=== PATIENT | male | born 1960 | race Caucasian/White ===

== ENCOUNTER 2024-07-23 10:04 | Day surgery (SDC) | payer MEDICARE, SELFPAY ==
[2024-07-20 07:11] VITALS: BMI 26.3
[2024-07-23 10:30] LABS: Hematocrit 40.7 % (40-54); Hemoglobin 13.2 g/dL (13.0-16.5); Mean Corp Hgb Conc 32.4 g/dL (32-36); Mean Corpuscular Hgb 30.2 pg (27.0-32.0); Mean Corpuscular Volume 93.1 fL (80-94); Mean Platelet Vol. 10.6 fl (6.2-12.0); Platelet Count 188 K/mm3 (150-450); RBC Distribution Width CV 15.7 % (11.6-14.6); Red Blood Count 4.37 M/mm3 (4.6-6.2); White Blood Count 8.6 K/mm3 (4.4-11.0)
[2024-07-23 11:02] LABS: Anion Gap 11 (5-15); BUN 30 mg/dL (4-19); BUN/Creat Ratio 22.1 RATIO (10-20); Calcium,Total 9.2 mg/dL (7.6-11.0); Chloride 107 mmol/L (98-108); Creatinine, Serum 1.35 mg/dL (0.70-1.20); EST Glomerular Filtration Rate 59 (>60); Estimated Creatinine Clearance 59.65 ml/min (50-250); Glucose 94 mg/dL (70-99); Potassium 4.5 mmol/L (3.3-5.1); Sodium Level 139 mmol/L (133-145)
[2024-07-23 16:38] LABS: ACT Activated Clotting Time 297 sec (74-137)
[2024-07-23 16:38] LABS: ACT Activated Clotting Time 256 sec (74-137)
[2024-07-23 17:15] VITALS: BP 141/74; PULSE 76; RESP 18; TEMP 36.4; O2SAT 99
[2024-07-23 17:30] VITALS: BP 135/90; PULSE 75; O2SAT 99
--- NOTE | 2024-07-23 17:38 | OP.PCM_ITS ---
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 He recently developed recurrent symptoms of right lower extremity claudication and a CT angiogram outside facility revealed occlusion of his right iliac Viabahn stents extending into the proximal common femoral artery. He has had multiple groin surgeries and the hope was to avoid any need for repeat open femoral exposure surgery. He is taken now for angiogram via left brachial access in an effort to perform mechanical thrombectomy of the iliac stents as well as to identify and treat the cause of failure which is suspected to be distal iliac or proximal common femoral stenosis. Description of procedure: Upon obtaining form consent and verification correct patient procedure site patient was taken to the [facility] was positioned prepped and draped in usual sterile fashion. Conscious sedation was administered Versed and fentanyl. Skin overlying the left brachial artery was anesthetized with 1% lidocaine. Transverse incision was made and Bovie electrocautery was dissect down through subcutaneous tissue. Self-retaining retractor put in position and sharp dissection carried down to the brachial artery which was dissected free proximal distal and a right angle used to place Vesseloops. A micropuncture needle wire were then used to access the brachial artery and exchanged for micropuncture sheath. Through this a J-wire was advanced and the micropuncture sheath exchanged for a short 5 Bhutanese sheath. The patient was in heparinized allowed to circulate for 3 minutes after which a Bentson wire and pigtail catheter were advanced into the aortic arch. These were then used to navigate into the descending thoracic aorta and ultimately advancing our wire and catheter into the abdominal aorta. From this position subtraction aortogram and right lower extremity angiogram was performed. This confirmed occluded stent at its origin with reconstitution of the common femoral artery distally. A straight glide wire was then advanced through the pigtail catheter and the pigtail catheter exchanged for a KMP catheter. This was used to engage the top of the occluded stent successfully ultimately advancing our wire and catheter into the midportion of the stent. The KMP catheter then exchanged for a quick cross catheter which was utilized to complete crossing the occluded stent segment. These were then advanced into the distal common femoral artery and hand-injection subtraction angiography confirmed appropriate positioning and patent vessel beyond the area of thrombus and plaque with no extravasation or dissection. This revealed that the profunda and superficial femoral artery were patent proximally. Next an Osmosis bare wire was advanced through the catheter and positioned in the proximal superficial femoral artery. An Osmosis EmbQuire Peña 6 was then advanced into position of the distal common femoral artery and deployed. The Datorama Joey thrombectomy atherectomy device was then brought in field prep for manufactures instructions. It was then advanced over the wire and engaged for multiple passes across the Viabahn stents as well as the [place] iliac and proximal common femoral artery distally. After multiple passes the device withdrawn and hand-injection angiography revealed approximately 50% flow channel within the stented segment and residual lesion in the mid common femoral artery. The device was then readvanced for multiple passes again through the Viabahn in the proximal common femoral artery. Again imaging suggested there was still significant residual thrombus within the Viabahn stents and there was still the lesion in the mid common femoral. Intravascular ultrasound then readvanced which confirmed that there was subacute appearing thrombus throughout the Viabahn and that the mid to distal common femoral had more chronic appearance versus intimal hyperplasia which would potentially explain the stent failure. The device was again readvanced as time focused at the mid common femoral and engaged for multiple passes. Device was then withdrawn and repeat imaging revealed improvement in the mid common femoral lesion. Given the presence of subacute thrombus we did not feel that angioplasty was safe to attempt so the filter was then retrieved and repeat angiogram obtained which revealed patent flow across the stent into the common femoral and profunda as well as superficial femoral artery patent proximally. It is felt that with the flow channel patent now and the culprit lesion treated with atherectomy that with anticoagulation potentially they would be an opportunity to resolve the thrombus. It was not felt that any further endovascular efforts would be safe due to potential risk of distal embolization. The sheath was then withdrawn and the brachial artery occluded with Vesseloops. The arteriotomy was then repaired with 6-0 Prolene suture in transverse orientation. After completing suture line clamps removed and satisfactory stasis was noted. There was a satisfactory pulse and distal to the repair and the brachial artery as well as in the radial artery the wrist. The incision was then closed with 3-0 Vicryl, 4 Monocryl and Dermabond for the skin. At the conclusion the patient was taken to the PCU for bedrest prior to discharge to home Surgical Findings: See above Complications Complications: No
[2024-07-23 17:45] VITALS: BP 127/73; PULSE 77; RESP 17; O2SAT 97
[2024-07-23 18:00] VITALS: BP 112/67; PULSE 91; RESP 17; O2SAT 99
[2024-07-23 18:30] VITALS: BP 141/76; PULSE 86; O2SAT 98
[2024-07-23 19:00] VITALS: BP 145/76; PULSE 98; O2SAT 97
== END 2024-07-23 19:20 | disposition home or self-care (01) ==
LOC: CLSP 10:08 → PCU 17:11
PROVIDERS: Referring Provider Surgery Trauma Surgery; Visit Provider Surgery Trauma Surgery
DX: I70.611 Atherosclerosis of nonbiological bypass graft(s) of the extremities with intermittent claudication, right leg (principal); I10 Essential (primary) hypertension; E78.5 Hyperlipidemia, unspecified; Z79.01 Long term (current) use of anticoagulants; Z79.899 Other long term (current) drug therapy; Z87.891 Personal history of nicotine dependence
CPT/HCPCS: 36200; 36245; 36415; 37184; 37225; 37252; 37253; 75625; 75710; 80048; 85027; 85347; 99152; 99153; C1724; C1753; C1769; C1884; C1894; Q9967; C1887

== ENCOUNTER 2024-08-04 13:17 | Inpatient (IN) | payer MEDICARE, SELFPAY ==
--- NOTE | 2024-08-03 10:37 | PAT.ANE_ITS ---
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 When Was Last Pacemaker Check QUESTION #4 FULL TEXT: You/Your Family Experience fever (hyperthermia) with Anesthesia Last Oral Intake Last Oral intake: Last Oral Intake NPO since Meds taken in AM with sips of water? 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 Has anyone observed you stop No 07/30/24 14:27 breathing during sleep? STOP Results Negative 07/30/24 14:27 QUESTION #5 FULL TEXT : Do you snore loudly (louder than talking or can be heard through closed doors)? 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 Specify any problems Hx of Preganancy in last 3 N/A 07/30/24 14:27 Months Nurse Filling Out Transfusion DSCHRIBER 07/30/24 14:27 & Questions: Date: 07/30/24 07/30/24 14:27 Time: 14:29 07/30/24 14:27 Patient unable to answer at this time (ie. 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: /Reproductive Hx- melt down furnace operator Hx Now No 07/30/24 14:27 Gestational Age (in weeks): EDC: Hx Hx Para Hx Section SAB No 07/30/24 14:27 Active Medications Active Medications: Current Medications Generic Name Dose Route Start Last Admin Trade Name Freq PRN Reason Stop Dose Admin Cefazolin Sodium 2 gm/ N/A 20 mls @ 400 mls/hr 08/04/24 07:30 IV 08/04/24 07:32 PREOP [facility] Medical History (Updated 07/30/24 @ 14:44 by Jennifer Lancaster) Wears glasses Wears partial dentures Wears dentures Marijuana use Alcohol use History of steroid therapy Walker as ambulation aid Ambulates with cane Arthritis Low iron High cholesterol Back pain History of ulceration Former smoker Hoarseness Leg cramps History of pain when walking History of edema History of echocardiogram History of stress test Cardiology follow-up encounter PAD (peripheral artery disease) Claudication Renal insufficiency Peripheral neuropathy HTN (hypertension) Hyperlipemia CRPS (complex regional pain syndrome) COPD (chronic obstructive pulmonary disease) Home Medications ?Medication ?Instructions ?Recorded ?Last Taken ?Type acetaminophen 325 mg capsule 650 mg PO Q8H PRN PRN fev er or pain 07/09/24 Unknown History amlodipine 5 mg tablet 5 mg PO QDAY BP 07/09/24 Unk nown History atorvastatin 80 mg tablet 80 mg PO QHS CHOLESTEROL Unknown History ezetimibe 10 mg tablet 10 mg PO QDAY CHOLESTEROL Unknown History ferrous sulfate 325 mg (65 mg 325 mg PO QDAY DEFICIENC Y 07/09/24 Unknown History iron) tablet lidocaine 5 % topical cream 1 applic topical TID PRN p ain 07/09/24 Unknown History methocarbamol 750 mg tablet 750 mg PO TID PRN muscle s pasm 07/09/24 Unknown History ondansetron 8 mg disintegrating 8 mg PO Q8H PRN nausea and vomiting 07/09/24 Unknown History tablet pregabalin 300 mg capsule 300 mg PO BID NERVE PAIN Unknown History rivaroxaban 20 mg tablet (Xarelto) 20 mg PO QPM PVD Unknown History venlafaxine 75 mg tablet 300 mg PO BID NEUROPATHY Unknown History Allergy/AdvReac Type Severity Reaction Status Date / Time cilostazol Allergy Diarrhea Verified 07/30/24 14:21 codeine Allergy Hives Verified 07/30/24 14:21 NSAIDS (Non-Steroidal Allergy ulcers Verified 07/30/24 14:21 Anti-Inflamma Family History Mother Diabetes Hyperlipidemia Hypertension Father Diabetes Hyperlipidemia Hypertension Surgical History (Updated 07/30/24 @ 14:44 by Jennifer Lancaster) Hx of foot surgery Hx of knee surgery Hx of total hip arthroplasty H/O endarterectomy (~10/24/17) History of thrombectomy (~02/26/20) H/O vascular surgery (~01/09/13) H/O hernia repair (~02/12/17) History of back surgery (~2015) H/O aorto-femoral bypass (~01/22/13) Social History current occupational status: disabled Smoking Status: Former smoker how long ago did patient quit smokin years alcohol intake: former substance use type: marijuana Audit: Pertinent Findings Pertinent Findings EKG Perinent findings: June 26, 2024. Normal sinus rhythm. Echo (EF%) pertinent findings: May 27, 2024. Ejection fraction is 58%. No significant valvular abnormalities. No intra-atrial shunt visualized. RVSP is 29 mmHg. Ascending aorta is 3.4 cm diameter. No aortic stenosis. Consult pertinent findings: June 26, 2024. Dr. Harding. 1. 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 Concern is occluded right iliac. Plan for CTA and repair as needed. 2. Hypertension controlled 3. Peripheral neuropathy?CRPS which is being treated. 4. Lower extremity venous insufficiency. Recommendation Anesthesia Recommendation Anesthesia recommendation: OPTIMIZED for anesthesia
[2024-08-04] VITALS (22 sets, daily range): BP systolic 101–160; BP diastolic 56–115; PULSE 77–93; RESP 12–19; TEMP 36.2–36.8; O2SAT 96–100; BMI 25.4; BMI 26.9
[2024-08-04] MEDS: 0.9% Normal Saline (1000mL) 1,000 ML 15 ML IV (06:37)
--- NOTE | 2024-08-04 06:46 | PCM.PRE.AN2 ---
ASA Classification* ASA Classification ASA Classification: 3 Assessment & Plan Anesthesia* Anesthesia Assessment Anesthesia Assessment: Discussed sedation and/or anesthesia options, risks, benefits, and alternatives with patient/parents/legal guardian/POA. Questions invited. The patient/parents/legal guardian/POA seems to understand and agrees to proceed with anesthesia plan. Reviewed the physical assessment, medical history, allergy history and patient home medications list prior to surgery/procedure/anesthetic and documented any changes. Performed airway and anesthesia risk assessments. Anesthesia Type Anesthesia Type: General (Consider GlideScope intubation. Discussed A-line monitoring with the patient.) History Source History Obtained from:: Patient and Chart Anesthesia Focused Assessment* Temperature: 98.3 F Pulse Rate: 77 Blood Pressure: 128/73 Respiratory Rate: 16 Pulse Ox: 99 Oxygen Delivery Method: Room Air Airway Assessment Mouth opens: >3 cm Mallampati Score: III Teeth Condition: Dentures (Patient has full upper dentures. They are out.) and Partial (Patient has partial lower dentures. They are out.) Neck Range of motion (ROM): Full ROM Focused Labs Anesthesia Preop lab: CBC WBC 8.6 K/mm3 (4.4-11.0) 07/23/24 10:13 07/23/24 RBC 4.37 M/mm3 (4.6-6.2) L 07/23/24 10:13 07/23/24 Hgb 13.2 g/dL (13.0-16.5) 07/23/24 10:13 07/23/24 Hct 40.7 % (40-54) 07/23/24 10:13 07/23/24 Plt Count 188 K/mm3 (150-450) 07/23/24 10:13 07/23/24 CHEMISTRY Potassium 4.5 mmol/L (3.3-5.1) 07/23/24 10:13 07/23/24 Sodium 139 mmol/L (133-145) 07/23/24 10:13 07/23/24 BUN 30 mg/dL (4-19) H 07/23/24 10:13 07/23/24 Creatinine 1.35 mg/dL (0.70-1.20) H 07/23/24 10:13 07/23/24 Glucose 94 mg/dL (70-99) 07/23/24 10:13 07/23/24 COAG Pre-Assessment Diagnosis/Proposed Procedure Planned Operative Procedure(s): RIGHT FEMORAL ENDARTERECTOMY FEM FEM BYPASS BILAT FLAPS Anesthesia History 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 When Was Last Pacemaker Check QUESTION #4 FULL TEXT: You/Your Family Experience fever (hyperthermia) with Anesthesia Last Oral Intake Last Oral intake: Last Oral Intake NPO since 20:00 08/04/24 06:12 Meds taken in AM with sips of water? 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 Has anyone observed you stop No 07/30/24 14:27 breathing during sleep? STOP Results Negative 07/30/24 14:27 QUESTION #5 FULL TEXT : Do you snore loudly (louder than talking or can be heard through closed doors)? 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 Specify any problems Hx of Preganancy in last 3 N/A 07/30/24 14:27 Months Nurse Filling Out Transfusion DSCHRIBER 07/30/24 14:27 & Questions: Date: 07/30/24 07/30/24 14:27 Time: 14:29 07/30/24 14:27 Patient unable to answer at this time (ie. 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: /Reproductive Hx- commercial lawn specialist Hx Now No 07/30/24 14:27 Gestational Age (in weeks): EDC: Hx Hx Para Hx Section SAB No 07/30/24 14:27 Active Medications Active Medications: Current Medications Generic Name Dose Route Start Last Admin Trade Name Freq PRN Reason Stop Dose Admin Cefazolin Sodium 2 gm/ N/A 20 mls @ 400 mls/hr 08/04/24 07:30 IV 08/04/24 07:32 PREOP ONE Sodium Chloride 1,000 mls @ 15 mls/hr 08/04/24 06:10 08/04/24 06:37 IV 15 mls/hr .Q48H CELINA Administration PFSH Medical History Wears glasses Wears partial dentures Wears dentures Marijuana use Alcohol use History of steroid therapy Walker as ambulation aid Ambulates with cane Arthritis Low iron High cholesterol Back pain History of ulceration Former smoker Hoarseness Leg cramps History of pain when walking History of edema History of echocardiogram History of stress test Cardiology follow-up encounter PAD (peripheral artery disease) Claudication Renal insufficiency Peripheral neuropathy HTN (hypertension) Hyperlipemia CRPS (complex regional pain syndrome) COPD (chronic obstructive pulmonary disease) Home Medications ?Medication ?Instructions ?Recorded ?Last Taken ?Type acetaminophen 325 mg capsule 650 mg PO Q8H PRN PRN fever or pain 07/09/24 Unknown History amlodipine 5 mg tablet 5 mg PO QDAY BP 07/09/24 08/03/24 History atorvastatin 80 mg tablet 80 mg PO QHS CHOLESTEROL 07/09/24 08/03/24 History ezetimibe 10 mg tablet 10 mg PO QDAY CHOLESTEROL 07/09/24 08/03/24 History ferrous sulfate 325 mg (65 mg 325 mg PO QDAY DEFICIENCY 07/09/24 08/03/24 History iron) tablet lidocaine 5 % topical cream 1 applic topical TID PRN pain 07/09/24 Unknown History methocarbamol 750 mg tablet 750 mg PO TID PRN muscle spasm 07/09/24 08/03/24 History ondansetron 8 mg disintegrating 8 mg PO Q8H PRN nausea and vomiting 07/09/24 Unknown History tablet pregabalin 300 mg capsule 300 mg PO BID NERVE PAIN 07/09/24 08/03/24 History rivaroxaban 20 mg tablet (Xarelto) 20 mg PO QPM PVD 07/09/24 07/31/24 History venlafaxine 75 mg tablet 300 mg PO BID NEUROPATHY 07/09/24 08/03/24 History Allergy/AdvReac Type Severity Reaction Status Date / Time cilostazol Allergy Diarrhea Verified 08/04/24 05:59 codeine Allergy Hives Verified 08/04/24 05:59 NSAIDS (Non-Steroidal Allergy ulcers Verified 08/04/24 05:59 Anti-Inflamma Family History Mother Diabetes Hyperlipidemia Hypertension Father Diabetes Hyperlipidemia Hypertension Surgical History Hx of foot surgery Hx of knee surgery Hx of total hip arthroplasty H/O endarterectomy (~10/24/17) History of thrombectomy (~02/26/20) H/O vascular surgery (~01/09/13) H/O hernia repair (~02/12/17) History of back surgery (~2015) H/O aorto-femoral bypass (~01/22/13) Social History current occupational status: disabled Smoking Status: Former smoker how long ago did patient quit smokin years alcohol intake: former substance use type: marijuana Review of Systems (Anesthesia) ROS Narrative System reviewed and no additional complaints, except as documented.
--- NOTE | 2024-08-04 07:38 | PCM.HP.BLA ---
History and Physical Allergies cilostazol Allergy (Verified 07/16/24 15:48) Diarrheacodeine Allergy (Verified 07/16/24 15:48) HivesNSAIDS (Non-Steroidal Anti-Inflamma Allergy (Verified 07/16/24 15:48) ulcers Medications ?Medication ?Instructions ?Recorded ?Confirmed ?Type MEDICAL MARIJUANA 07/09/24 07/09/24 History (INFORMATIONAL USE ONLY-PT USES MEDICAL MARIJUANA acetaminophen 325 mg capsule 650 mg PO Q8H PRN PRN 07/09/24 07/09/24 History amlodipine 5 mg tablet 5 mg PO QDAY 07/09/24 07/09/24 History atorvastatin 80 mg tablet 80 mg PO QDAY 07/09/24 07/09/24 History diclofenac sodium 1.5 % topical pkg topical PRN 07/09/24 07/09/24 History drops-menthol 10 % roll-on combo pack ezetimibe 10 mg tablet 10 mg PO QDAY 07/09/24 07/09/24 History ferrous sulfate 325 mg (65 mg 325 mg PO QDAY 07/09/24 07/09/24 History iron) tablet lidocaine 5 % topical cream 1 applic topical TID PRN 07/09/24 07/09/24 History methocarbamol 750 mg tablet 750 mg PO TID PRN 07/09/24 07/09/24 History ondansetron 8 mg disintegrating 8 mg PO Q8H PRN 07/09/24 07/09/24 History tablet pregabalin 300 mg capsule 300 mg PO BID 07/09/24 07/09/24 History rivaroxaban 20 mg tablet (Xarelto) 20 mg PO QPM 07/09/24 07/09/24 History venlafaxine 75 mg tablet 75 mg PO QDAY 07/09/24 07/09/24 History Have you fallen in the past year?: No PFSH Medical History PAD (peripheral artery disease) Claudication Renal insufficiency Peripheral neuropathy Osteoarthritis HTN (hypertension) Hyperlipemia CRPS (complex regional pain syndrome) COPD (chronic obstructive pulmonary disease) Surgical History H/O endarterectomy (~10/24/17) History of thrombectomy (~02/26/20) H/O vascular surgery (~01/09/13) H/O hernia repair (~02/12/17) Hip joint replacement by other means (~2016) History of back surgery (~2015) H/O aorto-femoral bypass (~01/22/13) Family History Mother Diabetes Hyperlipidemia HypertensionFather Diabetes Hyperlipidemia Hypertension Social History current occupational status: disabled Smoking Status: Former smoker how long ago did patient quit smokin years alcohol intake: former substance use type: marijuana HPI HPI HPI: DIANA GRANT, is a 64 M who presents to the office today for evaluation of right lower extremity claudication, occluded right iliac stent, known to me from [place]. Initially had what appears to be iliac stents that failed followed by aorto-bifem in 2012 which subsequently also failed. In 2017 I performed bilateral femoral endart and repeat iliac stents (crossed occlusion outside prior stents, viabhan placed). Suffered right iliac stent thrombosis in 2019 which was treated with percutaneous thrombectomy and angioplasty. Had been doing well since that time until about 4 weeks ago when abrupt return of short distance claudication occurred. CTA at [facility] revealed occluded right iliac stent, patent distal common femoral/profunda, SFA. Left iliac stent patent with no stenosis/thrombus ROS General General: No weight change, appetite, fatigue, colon cancer, breast cancer or weakness HEENT HEENT: No difficulty swallowing, eye injury, eye surgery, swollen glands or hoarseness Endo Endocrine: No thyroid disease, diabetes mellitus, thyroid cancer, Hair loss, heat intolerance or cold intolerance Skin Skin: No rash or changing moles Musc Musculoskeletal: Yes back problems and arthritis; No rheumatoid arthritis, gout or joint pain Cardio Cardiovascular: Yes high blood pressure; No murmur, pacemaker, heart disease, atrial fibrillation, heart attack, heart stent, palpitations, shortness of breath with exertion or chest pain Psych Psychiatric: No depression, anxiety or hearing voices Resp Respiratory: No shortness of breath, No sleep apnea, No cough, No COPD, No asthma, No emphysema and No wheezing Gastro Gastrointestinal: No abdominal pain, Yes nausea or vomiting, No diarrhea, No constipation, No blood in stool, No acid reflux, No hemorrhoids, No ulcers, Yes gallbladder problem and No black,tarry stools Kyle Hematologic: Yes blood thinners, No blood disorders, No bleeding, No anemia and No blood clots Neuro Neurologic: No system reviewed and no additional complaints, except as documented, No as per HPI, No abnormal gait, No abnormal hearing, No abnormal movements, No abnormal speech, No behavioral changes, Yes burning sensations, No confusion, No convulsions, No disequilibrium, No dizziness, Yes localized weakness, No frequent falls, No headache(s), No lack of coordination, No loss of vision, No memory loss, Yes numbness, No other visual disturbances, Yes radicular pain, No restless legs, No sensory deficit, No syncope, Yes tingling, No tremor(s), No weakness and No other Exam Const General: cooperative, healthy appearing, comfortable, no acute distress and well developed Nutritional Appearance: well nourished Orientation: alert, awake and oriented x3 HENMT Head: normocephalic and atraumatic Ears: hearing grossly normal bilaterally Nose: external nose normal Eyes General: appearance normal, both eyes and all related structures EOM: EOM intact bilaterally Neck Neck: normal visual inspection, full ROM and trachea midline Resp Effort & Inspection: normal respiratory effort, able to speak in complete sentences, symmetric chest movement, no audible wheezes, not labored, no stridor and no use of accessory muscles Auscultation: clear to auscultation bilaterally Cardio Rate: regular rate Rhythm: regular rhythm Heart Sounds: no murmurs Bruits: no carotid bruits Pulses: brachial pulses present, radial pulses present, popliteal pulses not present, posterior tibial pulses not present and dorsalis pedis pulses not present Skin General: no rashes or lesions noted and no erythema Wounds: no wounds Neuro Cranial Nerves: CN's II-XI intact bilaterally and EOM intact bilaterally Speech: speech normal Gait: normal gait Motor: strength 5/5 throughout Sensory Exam: no sensory deficits noted Psych Appearance: grossly normal and well kempt Mental Status: mental status grossly normal Mood: congruent mood Speech and Movement: speech and movement normal Thought Content: normal Judgment: judgment good Coding Level of Care Code Off vis,new,level 4 Diagnoses 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 I70.611 Peripheral atherosclerosis location: lower extremity Laterality: right Assessment and Plan Assessment and Plan (1) Atheroscler nonbiologic bypass graft extremity w/intermit claudication: Status: Acute Qualifiers: Peripheral atherosclerosis location: lower extremity Laterality: right Qualified Code(s): I70.611 - Atherosclerosis of nonbiological bypass graft(s) of the extremities with intermittent claudication, right leg Comment: CTA images reviewed; prior ABF occluded -left iliac viabahn patent with no thrombus or stenosis -right iliac viabahn occluded at origin extending throughout, proximal common femoral occluded; distal common femoral and bifurcation patent Plan: -recurrent right iliac viabahn thrombosis; has been occluded about 3-4 weeks -discussed options, risks/benefits -with multiple femoral artery surgical procedures is at increasing risk for vessel injury/infection/poor result with each subsequent attempt -were able to cross occlusion endo 2 weeks ago, but suboptimal thrombus clearance and only temporary symptom improvement; suspect iliac has occluded again -fem-fem with cadaver
[2024-08-04] MEDS: Cefazolin 2 GM in Syringe IV (08:16)
[2024-08-04] MEDS: Heparin 10,000 UNITS/10 ML Vial 10000 UNITS ×2 (08:49→10:01)
[2024-08-04 12:40] LABS: ACT Activated Clotting Time 147 sec (74-137)
[2024-08-04 12:41] LABS: ACT Activated Clotting Time 245 sec (74-137)
[2024-08-04 12:41] LABS: ACT Activated Clotting Time 285 sec (74-137)
[2024-08-04 12:42] LABS: ACT Activated Clotting Time 245 sec (74-137)
--- NOTE | 2024-08-04 13:28 | OP.PCM_ITS ---
Operative Report (Standard) Operative Information Date of Procedure: 08/04/24 Pre-Operative Diagnosis: atherosclerosis with claudication right lower extremity, [place] artery Post-Operative Diagnosis: same Surgery/Procedure Performed: left to right femoral-femoral bypass bilateral sartorius flaps case packer and sealer: Yes Stock Trader: Charlene May Tasks completed by assistant professor of theater: Opening, Closing, Opening & closing, Hemost asis: Tie, Hemostasis: Electrocautery and Retracting Type of Anesthesia: General RN Documented Start/Stop Times: Operation Date: 08/04/24 07:30 Case Time Into Pre-Op 08/04/24 06:02 Out of Pre-Op 08/04/24 07:41 Anesthesia Start 08/04/24 07:47 Into Room 08/04/24 07:47 Procedure Start 08/04/24 08:49 Procedure End 08/04/24 13:41 Anesthesia End 08/04/24 13:44 Out of Room 08/04/24 13:44 Into Recovery 08/04/24 13:47 Out of Recovery 08/04/24 14:44 Procedure Start Time: 08:50 Procedure Stop Time: 13:30 Select all DRAINS/GRAFTS/IMPLANTS that apply: Graft Graft details: cadaver femoral-popliteal artery bovine pericardial patch Estimated Blood Loss: 150 Specimen collected: No Description of surgery: HPI: Patient is a 64-year-old male with multiple open and endovascular revascularizations of his aortoiliac occlusive disease. He has bilateral iliac stents that had failed and ultimately required an aortobifemoral bypass which also has failed. He later subsequently underwent bilateral femoral endarterectomies and bilateral common and external iliac artery covered stent placement which had been doing well for him until recently when he developed acute worsening of his right lower extremity claudication. Imaging at outside facility revealed occluded right iliac stents with reconstitution of the common femoral artery. He underwent attempted percutaneous thrombectomy via brachial access though there was suboptimal clearance of the thrombus and ultimately this reoccluded with return of his symptoms. He presents now for a left or right femoral to femoral bypass with cadaver. Given the multiple operations in each of the groins prophylactic sartorius flaps are felt to be appropriate. Likewise given the reoperative nature and significant scar a modifier 22 is applied given the approximately 1 hour of additional operative time. Description of procedure: Upon obtaining informed consent and verification of correct patient procedure site the patient was taken the operating where he was placed under general anesthesia. He was then positioned prepped and draped in usual sterile fashion and timeout performed. Skin incision was made at the location of the prior vertical left femoral operative site. Bovie electrocautery was used dissect down through subcutaneous tissue and self- retaining retractors put in position. Further dissection was then carried down until the inguinal ligament was visualized and this was then mobilized along the inferior border along with be retracted cephalad. Once the proximal common femoral artery was visualized sharp dissection was used to dissect through the dense scar surrounding the entirety of the vessel. Ultimately we were able to successfully dissect proximally to the distal external iliac artery and enough vessel had been mobilized to allow clamp placement. Likewise we dissected distally down to just above the bifurcation and were able to circumferentially dissected free and placed a vessel loop. Next vertical incision at the site of the prior right femoral operative site was created and Bovie electrocautery used dissect down through subcutaneous tissue. Self-retaining retractors then put in position further dissection carried down until the inguinal ligament was visualized. Once the proximal common femoral artery was visualized sharp dissection was used dissect free proximally and then carried our dissection distally down to the bifurcation onto the superficial femoral artery and profundofemoral artery. Each of these were dissected free individually and a right angle used to place Vesseloops. A Debo tunneler was then used to tunnel between the 2 femoral incisions and the patient was then heparinized allowed to circulate for 3 minutes. The left common femoral was then clamped proximal and distal and a longitudinal arteriotomy created with 11 blade extended with Nina scissors. There was some wall thickening and mild atherosclerosis so in order to minimize potential for loss of lumen caliber a bovine pericardial patch was secured in position with a 5-0 Prolene in running fashion. Prior to completing the suture line the vessels are backbled after completing suture line clamps removed and satisfactory stasis was noted. The vessels were then reoccluded and longitudinal arteriotomy created in the center of the new patch. This was then extended the Nina scissors and the cadaver artery which had been thawed per energy consultant's instructions was beveled to match the arteriotomy. This was then secured in position using a 6-0 Prolene running fashion. After completing suture line the vessels were flushed into the graft and then flow reestablished to the [place] valley system. Satisfactory stasis was noted to the suture line and the graft was marked to maintain orientation. Sidebranches were then inspected and satisfactory stasis was observed. The graft was then attached to the tunneler and pulled through to the contralateral incision. Superficial femoral artery and profundofemoral artery were then occluded with Vesseloops as was the proximal common femoral artery. A longitudinal arteriotomy was created with an 11 blade on the distal common femoral artery and extended with Nina scissors onto the superficial femoral artery. Given the presence of thrombus in the proximal common femoral artery the profunda and superficial femoral arteries were backbled with brisk bright red backbleeding observed. The proximal vessel loop was then released and the lumen cleared of any residual thrombus. The graft was then cut the length and beveled to match the arteriotomy and anastomosis performed using a 6-0 Prolene in a running fashion. Prior to completing suture line the vessels and graft were flushed and after completing suture line clamps were removed and satisfactory stasis was observed. There is palpable pulse in the superficial femoral artery and profundofemoral artery beyond the anastomosis and vessels were interrogated Doppler and found to be patent with appropriate signals. Heparin was then reversed with protamine and the incision inspected for hemostasis. Surgicel topical hemostatic was applied. We then turned our attention to the sartorius muscle mobilization. Bovie was used to dissect lateral to the right femoral vessels to the anterior aspect the fascia which was then incised exposing the sartorius muscle. Bovie was then used to dissect along the lateral edge of the muscle up to the insertion and the ASIS. At the superior aspect the muscle was circumferentially dissected free and detached from its insertion then reflected medially to cover the femoral vessels and the graft. The sartorius was then secured in position with 2-0 Vicryl interrupted suture with satisfactory tension-free coverage of the common femoral artery and the distal aspect of the femoral bypass graft. Next Bovie was utilized to dissect lateral to the left common femoral artery to the fascia which was incised exposing the sartorius muscle. Dissection was then carried along the lateral aspect of the muscle up to the insertion and the ASIS. The muscle was then circumferentially dissected free and detached from its insertion transposed medially covering the common femoral artery and the proximal aspect of the graft. The muscle flap was then secured in position with a 2-0 Vicryl interrupted suture with satisfactory tension-free coverage. The incisions were then closed with 3-0 Vicryl, 4-0 Monocryl and Prineo for the skin. The patient was then awake from anesthesia taken the recovery room with anticipated admission to the intensive care unit for hemodynamic and vascular monitoring. Surgical Findings: see above Complications Complications: No
--- NOTE | 2024-08-04 13:53 | PCM.POST.ANE ---
Anesthesia: Postop Eval I Current Vital Signs Temperature: 97.1 F Pulse Rate: 85 Blood Pressure: 150/67 Respiratory Rate: 14 Pulse Ox: 98 Oxygen Delivery Method: Room Air Assessment Airway patent: Yes Spontaneous unlabored respirations: Yes Mental status: Awake and Calm nausea: No Vomiting: No Anesthesia Complication: No Fluid Hydration Crystalloid volume administer (ml): 2,900 Total IV fluid infused: 2,900 Progress Note Anesthesia document: Postop Eval 1 completed: Yes
[2024-08-04] MEDS: HYDROmorphone 1 MG/ML Syringe IV ×2 (15:36→23:42)
[2024-08-04] MEDS: Acetaminophen 500 MG Tablet 1000 MG PO ×2 (15:37→22:38)
[2024-08-04] MEDS: 0.45% Normal Saline 1,000 ML 100 ML IV (15:43)
--- NOTE | 2024-08-04 19:34 | POSTOPAN2_ITS ---
Anesthesia Postop Eval I Sum Postop Eval Completion status Anesthesia document: Postop Eval 1 completed: Yes Anesthesia Postop Eval I Summary Anesthesia Postop Eval I Summary: Anesthesia Postop Eval I: Assessment Summary Airway patent Yes 08/04/24 13:54 CLEANER [email or web address] Spontaneous unlabored Yes 08/04/24 13:54 CLEANER WALL.APAT respirations Mental status Awake,Calm 08/04/24 13:54 CLEANER WALL.APAT nausea No 08/04/24 13:54 CLEANER WALL.APAT Vomiting No 08/04/24 13:54 CLEANER WALL.APAT Anesthesia Postop Eval I: Fluid Summary Crystalloid volume administer 2,900 08/04/24 13:54 CLEANER WALL.APAT (ml) Colloids volume administered ( ml) Blood Product volume administered (ml) Total IV fluid infused 2,900 08/04/24 13:54 CLEANER WALL.APAT Anesthesia Postop Eval I: Summary Notes Anesthesia Complication No 08/04/24 13:54 CLEANER WALL.APAT Anesthesia Complication Comment: Post-operative progress note Anesthesia: Postop Eval II Evaluation Mental status: Awake and Calm Pain Level: 2 nausea: No Vomiting: No Complications Anesthesia Complication: No
--- NOTE | 2024-08-04 19:34 | PCM.POSTANE2 ---
Anesthesia Postop Eval I Sum Postop Eval Completion status Anesthesia document: Postop Eval 1 completed: Yes Anesthesia Postop Eval I Summary Anesthesia Postop Eval I Summary: Anesthesia Postop Eval I: Assessment Summary Airway patent Yes 08/04/24 13:54 REHABILITATION THERAPY TECHNICIAN.APAT Spontaneous unlabored Yes 08/04/24 13:54 REHABILITATION THERAPY TECHNICIAN.APAT respirations Mental status Awake,Calm 08/04/24 13:54 REHABILITATION THERAPY TECHNICIAN.APAT nausea No 08/04/24 13:54 REHABILITATION THERAPY TECHNICIAN.APAT Vomiting No 08/04/24 13:54 REHABILITATION THERAPY TECHNICIAN.APAT Anesthesia Postop Eval I: Fluid Summary Crystalloid volume administer 2,900 08/04/24 13:54 REHABILITATION THERAPY TECHNICIAN.APAT (ml) Colloids volume administered ( ml) Blood Product volume administered (ml) Total IV fluid infused 2,900 08/04/24 13:54 REHABILITATION THERAPY TECHNICIAN.APAT Anesthesia Postop Eval I: Summary Notes Anesthesia Complication No 08/04/24 13:54 REHABILITATION THERAPY TECHNICIAN.APAT Anesthesia Complication Comment: Post-operative progress note Anesthesia: Postop Eval II Evaluation Mental status: Awake and Calm Pain Level: 2 nausea: No Vomiting: No Complications Anesthesia Complication: No
[2024-08-04] MEDS: oxyCODONE 5 MG Tablet PO (19:38)
[2024-08-04] MEDS: HEPARIN/D5w 25,000 UNITS 25,000 UNITS/250 ML IV.SOLN. 5 UNITS CONT INF (19:39)
[2024-08-04] MEDS: Pregabalin 75 MG Capsule 300 MG PO (22:38)
[2024-08-04] MEDS: Atorvastatin Calcium 80 MG Tablet PO (22:38)
[2024-08-04] MEDS: Venlafaxine XR 75 MG Capsule PO (22:38)
[2024-08-04] MEDS: 0.9% Saline Lock 10 ML Syringe IV (23:42)
[2024-08-05] VITALS (24 sets, daily range): BP systolic 96–170; BP diastolic 56–105; PULSE 70–107; RESP 9–22; TEMP 36.4–36.8; O2SAT 94–100; BMI 26.8
[2024-08-05] MEDS: Mag Hydrox/Al Hydrox/Simeth 30 ML UDC PO (01:54)
[2024-08-05 04:19] LABS: Absolute Lymphocyte Count 0.86 X10^3/uL (0.83-4.51); Absolute Neutrophil Count 10.7 X10^3/uL (2.0-7.7); Basophil# 0.02 X10^3/uL; Basophil% 0.2 % (0-1); Hematocrit 30.1 % (40-54); Hemoglobin 10.2 g/dL (13.0-16.5); Lymphocyte # 0.86 X10^3/ul (0.83-4.51); Lymphocyte % 6.8 % (19-41); Mean Corp Hgb Conc 33.9 g/dL (32-36); Mean Corpuscular Hgb 31.8 pg (27.0-32.0); Mean Corpuscular Volume 93.8 fL (80-94); Mean Platelet Vol. 10.3 fl (6.2-12.0); Monocyte# 1.04 X10^3/uL; Monocyte% 8.2 % (0-10); NRBC Flagged by Analyzer 0 % (0-5); Neutrophil # 10.68 X10^3/uL (2.7-7.7); Neutrophil % 84.2 % (47-70); Platelet Count 238 K/mm3 (150-450); RBC Distribution Width CV 15.8 % (11.6-14.6); RBC Distribution Width SD 54.2 fl (35.1-43.9); Red Blood Count 3.21 M/mm3 (4.6-6.2); White Blood Count 12.7 K/mm3 (4.4-11.0)
[2024-08-05 04:42] LABS: Anion Gap 10 (5-15); BUN 24 mg/dL (4-19); BUN/Creat Ratio 19.3 RATIO (10-20); Calcium,Total 7.9 mg/dL (7.6-11.0); Carbon Dioxide 20.1 mmol/L (21.0-32.0); Chloride 107 mmol/L (98-108); Creatinine, Serum 1.23 mg/dL (0.70-1.20); EST Glomerular Filtration Rate 66 (>60); Estimated Creatinine Clearance 65.47 ml/min (50-250); Glucose 140 mg/dL (70-99); Potassium 4.3 mmol/L (3.3-5.1); Sodium Level 137 mmol/L (133-145)
[2024-08-05 05:20] LABS: Partial Thromboplast Time 30.5 Seconds (24.1-36.2)
[2024-08-05] MEDS: oxyCODONE 5 MG Tablet PO (05:29)
[2024-08-05] MEDS: Acetaminophen 500 MG Tablet 1000 MG PO ×3 (05:30→20:46)
--- NOTE | 2024-08-05 07:32 | PN.SURG_ITS ---
Subjective Subjective Mr. Anthony was resting in bed eating breakfast on my exam this morning. He reports pain primarily in his L thigh around the incision site and in his buttock. He has no other complaints. Hgb 10.2 this morning from 13.2 preoperatively; he has been hemodynamically stable. He has been on low-dose heparin overnight, no bleeding has been noted. Objective Data Objective Data Vital Signs: Vital Signs Temp Pulse Resp BP Pulse Ox O2 Del Method 98.3 F 75 22 H 107/88 H 97 Room Air 08/05/24 03:00 08/05/24 07:00 08/05/24 07:00 08/05/24 07:00 08/05/24 07:00 08/05/24 07:00 Oxygen Delivery Method Room Air Weight: 191 lb 12.835 oz Body Mass Index (BMI) 26.8 Intake & Output: Intake and Output for Last 24 Hours 08/03/24 08/04/24 08/05/24 23:59 23:59 23:59 Intake Total 1145.5 / 1145.5 1000 / 1000 Output Total 1225 / 1225 650 / 650 Balance -79.5 / -79.5 350 / 350 Lab / Micro Data 08/05/24 04:07 08/05/24 04:07 Labs: Laboratory Results - last 24 hr 08/04/24 07:01: Activated Clotting Time 147 H 08/04/24 09:45: Activated Clotting Time 285 H 08/04/24 10:19: Activated Clotting Time 245 H 08/04/24 10:59: Activated Clotting Time 245 H 08/05/24 04:07: WBC 12.7 H, RBC 3.21 L, Hgb 10.2 L, Hct 30.1 L, MCV 93.8, MCH 31.8, MCHC 33.9, RDW Std Deviation 54.2 H, RDW Coeff of Galileo 15.8 H, Plt Count 238, MPV 10.3, Immature Gran % (Auto) 0.600, Neut % (Auto) 84.2 H, Lymph % (Auto) 6.8 L, [place] % (Auto) 8.2, Eos % (Auto) 0.0, Baso % (Auto) 0.2, Absolute Neuts (auto) 10.7 H, Absolute Lymphs (auto) 0.86, Nucleated RBC % 0, APTT 30.5, Sodium 137, Potassium 4.3, Chloride 107, Carbon Dioxide 20.1 L, Anion Gap 10, B UN 24 H, Creatinine 1.23 H, Estim Creat Clear Calc 65.47, Est GFR (MDRD) Non-Af 66, BUN/Creatinine Ratio 19.3, Glucose 140 H, Calcium 7.9 Physical Exam Const alert, oriented x3 and no apparent distress General Appearance: cooperative and comfortable HEENT head/scalp atraumatic, hearing grossly normal bilaterally, external ears normal and external nose normal Eyes EOMs intact bilaterally General Eye: normal appearance of both eyes Neck General: normal visual inspection and trachea midline Resp normal respiratory effort, normal air movement, no retractions and no use of accessory muscles Effort and Inspection: able to speak in complete sentences Cardio regular rate and regular rhythm Peripheral Pulses: dorsalis pedis pulses present Extremity Extremity Narrative: Bilateral groin incision sites with Prevena vacuum dressing in place, maintaining seal. Edema noted, soft to palpation, no significant ecchymosis. No drainage. Bilateral DP pulses palpable, bilateral feet appropriately warm Skin no rashes or lesions noted Neuro oriented x3, CN's II-XII intact bilaterally and moves all extremities Speech: speech normal Psych mental status grossly normal Appearance: grossly normal Attitude: calm and engaged Activity / Motor Behavior: appropriate eye contact Speech: normal speech Mood & Affect: euthymic mood Assessment & Plan Assessment/Plan (1) Atheroscler nonbiologic bypass graft extremity w/intermit claudication: QUALIFIERS: Peripheral atherosclerosis location: lower extremity Laterality: right Qualified Code(s): I70.611 - Atherosclerosis of nonbiological bypass graft(s) of the extremities with intermittent claudication, right leg (2) PAD (peripheral artery disease): PLAN: Plan He is POD#1 s/p left to right femoral-femoral bypass and bilateral sartorius flaps. Incision sites satisfactory in appearance with Prevena vac dressings in place. Vascular exam is improved with palpable pedal pulses bilaterally. Increase to therapeutic weight-based heparin drip. Will repeat Hgb this afternoon to monitor. D/c art line. D/c pete. Plan for him to work with PT/OT today.
[2024-08-05] MEDS: HEPARIN/D5w 25,000 UNITS 25,000 UNITS/250 ML IV.SOLN. 12 UNITS CONT INF (08:59)
--- NOTE | 2024-08-05 09:33 | CASEMGMT ---
JUSTIN GROSS Assessment Face to Face with patient for initial transition planning/care coordination assessment. JUSTIN GROSS introduced self and role at [facility], pt voices understanding. Pt is A&Ox4 and is resting comfortably in the chair and is calm. Care providers, pharmacy, and demographics verified. Admitting dx: Rt Femoral Endarterectomy LACE Strata: 1 PCP: Jennifer Fleming Specialists: Thomas (Vascular), Mehdi (Cardio), Pain Management through [facility] Preferred Pharmacy: [facility] during this stay Insurance: [facility] Prescription Benefit: Yes LNOK: Myra (W) Living Arrangements: Pt lives with his in a single story ranch-style home with 2 steps to enter ADLs/IADLs: States independent Transportation: Self, . Denies concerns DME: Rollator, cane, manual and electric W/C, FWW, Walk-in shower with shower bench and grab bars & handheld shower HHC/SNF: Reports HH and SNF rehab History x 8-9 years ago through [facility] Pt?s goal: Home Plan: Home with pt , anticipate no additional needs. Per ICU rounds, pt has a prevena vac that he will DC home with. Pt aware that he will be provided education on how to care for this prior to DC. At this time, the pt states that he feels safe returning home with his once he is medically ready (today vs tomorrow) and denies the need for HHC or OP Tx. PT is pending. CM to follow. Pt denies further questions or concerns at this time. Aleisha Dos Santos RN, CM
[2024-08-05] MEDS: Pregabalin 75 MG Capsule 300 MG PO ×2 (09:53→20:49)
[2024-08-05] MEDS: Ezetimibe 10 MG Tablet PO (09:53)
[2024-08-05] MEDS: amLODIPine 5 MG Tablet PO (09:53)
[2024-08-05] MEDS: Venlafaxine XR 75 MG Capsule PO ×2 (09:53→20:46)
[2024-08-05] MEDS: oxyCODONE 5 MG Tablet 10 MG PO ×4 (10:15→22:48)
[2024-08-05 14:43] LABS: Hemoglobin 10.5 g/dL (13.0-16.5)
[2024-08-05 15:14] LABS: Partial Thromboplast Time 105.3 Seconds (24.1-36.2)
[2024-08-05] MEDS: Atorvastatin Calcium 80 MG Tablet PO (20:46)
[2024-08-06] VITALS (11 sets, daily range): BP systolic 105–138; BP diastolic 63–84; PULSE 74–98; RESP 10–22; TEMP 36.2–36.6; O2SAT 94–100; BMI 27.5
[2024-08-06 00:30] LABS: Partial Thromboplast Time 75.6 Seconds (24.1-36.2)
[2024-08-06] MEDS: Acetaminophen 500 MG Tablet 1000 MG PO (06:03)
[2024-08-06] MEDS: 0.9% Saline Lock 10 ML Syringe IV (06:03)
[2024-08-06] MEDS: oxyCODONE 5 MG Tablet 10 MG PO (06:03)
[2024-08-06] MEDS: HEPARIN/D5w 25,000 UNITS 25,000 UNITS/250 ML IV.SOLN. 9 UNITS CONT INF (06:07)
[2024-08-06 07:19] LABS: Hematocrit 30.8 % (40-54); Hemoglobin 10.3 g/dL (13.0-16.5); Mean Corp Hgb Conc 33.4 g/dL (32-36); Mean Corpuscular Hgb 31.8 pg (27.0-32.0); Mean Corpuscular Volume 95.1 fL (80-94); Mean Platelet Vol. 11.1 fl (6.2-12.0); Platelet Count 229 K/mm3 (150-450); RBC Distribution Width CV 16.6 % (11.6-14.6); RBC Distribution Width SD 57.7 fl (35.1-43.9); Red Blood Count 3.24 M/mm3 (4.6-6.2); White Blood Count 13.6 K/mm3 (4.4-11.0)
[2024-08-06 07:44] LABS: Partial Thromboplast Time 93.7 Seconds (24.1-36.2)
--- NOTE | 2024-08-06 07:53 | DS.PCM_ITS ---
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 Incision sites satisfactory in appearance with Prevena vac dressings in place. Vascular exam is improved with palpable pedal pulses bilaterally. Increase to therapeutic weight-based heparin drip. Will repeat Hgb this afternoon to monitor. D/c art line. D/c yanci. Plan for him to work with PT/OT today. Medications at Discharge Home Medications acetaminophen 325 mg capsule 650 mg PO Q8H PRN PRN fever or pain 07/09/24 Held on 08/06/24. Instructions: Resume on 08/13/24. amlodipine 5 mg tablet 5 mg PO QDAY BP 07/09/24 atorvastatin 80 mg tablet 80 mg PO QHS CHOLESTEROL 07/09/24 ezetimibe 10 mg tablet 10 mg PO QDAY CHOLESTEROL 07/09/24 ferrous sulfate 325 mg (65 mg iron) tablet 325 mg PO QDAY DEFICIENCY 07/09/24 lidocaine 5 % topical cream 1 applic topical TID PRN pain 07/09/24 methocarbamol 750 mg tablet 750 mg PO TID PRN muscle spasm 07/09/24 ondansetron 8 mg disintegrating tablet 8 mg PO Q8H PRN nausea and vomiting 07/09/24 pregabalin 300 mg capsule 300 mg PO BID NERVE PAIN 07/09/24 rivaroxaban 20 mg tablet (Xarelto) 20 mg PO QPM PVD 07/09/24 venlafaxine 75 mg tablet 300 mg PO BID NEUROPATHY 07/09/24 acetaminophen 500 mg tablet 1,000 mg (2 x 500 mg) PO Q8 #0 tabs 08/06/24 oxycodone 5 mg tablet 5 mg PO Q6H PRN PRN Pain Score 4-10 5 days #20 tabs 08/06/24 Hospital Course Summary of Care Provided Hospital Course: Mr. Anthony is a 64 y/o male who underwent planned left to right femoral- femoral bypass and bilateral sartorius flaps 08/04/24. The surgery was without complication and he tolerated it well. Postoperatively, he was routinely admitted to the ICU for hemodynamic and neurovascular monitoring. He had expected initial postoperative decrease in his Hgb to 10.2 on POD#1 morning but this then remained stable on therapeutic heparin drip with Hgb this morning 10.3. The incision sites are satisfactory in appearance without hematoma; Prevena vacuum dressings are in place and maintaining good seal. His vascular exam is much improved postoperatively with palpable pedal pulses bilaterally. He has expected pain at the incision sites which has been well-controlled with oral pain medications. He did well working with PT/OT and feels safe discharging to his home where he has walker and rollator and other gait assistive devices in place. He has tolerated a normal diet and voided without issue. He discharged to home today is stable condition with scheduled outpatient follow-up in the office on 08/18/24. Physical Exam Const alert, oriented x3 and no apparent distress General Appearance: cooperative and comfortable HEENT head/scalp atraumatic, hearing grossly normal bilaterally, external ears normal and external nose normal Eyes EOMs intact bilaterally General Eye: normal appearance of both eyes Neck General: normal visual inspection and trachea midline Resp normal respiratory effort, normal air movement, no retractions and no use of accessory muscles Effort and Inspection: able to speak in complete sentences Cardio regular rate and regular rhythm Peripheral Pulses: dorsalis pedis pulses present Extremity Extremity Narrative: Bilateral groin incision sites with Prevena vacuum dressing in place, maintaining seal. Edema noted, soft to palpation, no significant ecchymosis. No drainage. Bilateral DP pulses palpable, bilateral feet appropriately warm Skin no rashes or lesions noted Neuro oriented x3, CN's II-XII intact bilaterally and moves all extremities Speech: speech normal Psych mental status grossly normal Appearance: grossly normal Attitude: calm and engaged Activity / Motor Behavior: appropriate eye contact Speech: normal speech Mood & Affect: euthymic mood Weight / BMI Weight Weight: 196 lb 10.437 oz Body Mass Index (BMI) 27.5 ABG / Lab / Microbiology Data 08/06/24 05:55 08/05/24 04:07 Laboratory: Laboratory Results - last 24 hr 08/05/24 14:30: Hgb 10.5 L, APTT 105.3 H* 08/05/24 23:35: APTT 75.6 H 08/06/24 05:55: WBC 13.6 H, RBC 3.24 L, Hgb 10.3 L, Hct 30.8 L, MCV 95.1 H, MCH 31.8, MCHC 33.4, RDW Std Deviation 57.7 H, RDW Coeff of Galileo 16.6 H, Plt Count 229, MPV 11.1, APTT 93.7 H* D/C Instructions Discharge Diet: No restrictions May shower in (days): 1 Weight Bearing Status: Weight bearing as tolerated Lifting Restricted to (Lbs): 20 Lifting Restrictions: Do not lift greater than 20 pounds for 3 weeks Call your doctor if your incision/area has: Sudden Increased Bleeding, Increased Pain/ Swelling and Foul Smelling Discharge Call your doctor if you observe: Fever of 101 or Higher and Uncontrolled pain DC O2, CPAP, BIPAP Needs Home O2 Discharge instructions: No Additional Instructions: Your groin incision sites are covered with Prevena vacuum dressings. These should remain in place for 7 days after surgery if possible, which would mean they can be removed on Saturday08/11/24. If the machine is alarming and you cannot get it to stop or you have other difficulties, they can be removed sooner if needed. To remove: (1) Hold the power button until the unit turns off (2) Twist to white connectors to disconnect all of the tubing (3) You should notice the purple foam of the dressing puff up (4) Gently peel off the dressings (5) Throw everything away Your groin incisions are closed with skin glue which will continue to protect them once the vacuum dressings are removed. The glue will peel/flake off on its own over the next few weeks, please do not pick at it. You may shower starting tomorrow. Soap and water can rinse over the incisions, just be sure to gently and thoroughly dry after. Do not submerge the sites in water such as to take a bath or swim for 3 weeks. Do not lift greater than 20 pounds for 3 weeks. Otherwise, please proceed with activity as tolerated. For pain control, I advise continuing to take Tylenol 1,000 mg every 8 hours scheduled for the next several days. I have also prescribed oxycodone to be taken in addition to the Tylenol as needed. The oxycodone should not be taken in combination with any other prescription pain medications. You should not operate any machinery or drive while taking the oxycodone. Oxycodone can also cause constipation, I recommend taking an over the counter stool softener like Dulcolax or using Miralax daily while taking this as well. You are scheduled for follow-up in the office on 08/18/2024 at 2 PM. If you need to change this appointment or have any other questions or concerns please contact the office at [phone]. Please Follow Up With: Sophia Lockett PA When: 08/18/2024 at 2 PM Meaningful Use Info Meaningful Use Meaningful Use Diagnoses (Choose all that apply): None applicable Ischemic Stroke Statin Dosing Therapy Reference: STATIN DOSE THERAPY REFERENCE: * Patients > 75 years receive moderate or high dose statin therapy. * Patients 75 years or YOUNGER should receive HIGH intensity statin dose unless contraindicated. You will be required to document reason for non-treatment if statin daily dose does not meet guidelines. HIGH DOSE STATIN THERAPY DAILY Atorvastatin > than or = to 40 mg Rosuvastatin > than or = to 20 mg Amlodipine + Atorvastatin > than or = to 2.5/40 mg Ezetimibe + Simvastatin 10/80 mg Simvastatin 80mg Discharge Plan Admission Admit Date/Time: 08/04/24 13:17 Attending Provider: Evelio Guzman Primary Care Provider: ADRIAN BARTON Instructions Additional Instructions / Restrictions: Your groin incision sites are covered with Prevena vacuum dressings. These should remain in place for 7 days after surgery if possible, which would mean they can be removed on Saturday08/11/24. If the machine is alarming and you cannot get it to stop or you have other difficulties, they can be removed sooner if needed. To remove: (1) Hold the power button until the unit turns off (2) Twist to white connectors to disconnect all of the tubing (3) You should notice the purple foam of the dressing puff up (4) Gently peel off the dressings (5) Throw everything away Your groin incisions are closed with skin glue which will continue to protect them once the vacuum dressings are removed. The glue will peel/flake off on its own over the next few weeks, please do not pick at it. You may shower starting tomorrow. Soap and water can rinse over the incisions, just be sure to gently and thoroughly dry after. Do not submerge the sites in water such as to take a bath or swim for 3 weeks. Do not lift greater than 20 pounds for 3 weeks. Otherwise, please proceed with activity as tolerated. For pain control, I advise continuing to take Tylenol 1,000 mg every 8 hours scheduled for the next several days. I have also prescribed oxycodone to be taken in addition to the Tylenol as needed. The oxycodone should not be taken in combination with any other prescription pain medications. You should not operate any machinery or drive while taking the oxycodone. Oxycodone can also cause constipation, I recommend taking an over the counter stool softener like Dulcolax or using Miralax daily while taking this as well. You are scheduled for follow-up in the office on 08/18/2024 at 2 PM. If you need to change this appointment or have any other questions or concerns please contact the office at [phone]. Discharge Orders/Prescriptions Prescriptions: New acetaminophen 500 mg Tablet 1,000 mg PO Q8 Qty: 0 0RF oxycodone 5 mg Tablet 5 mg PO Q6H PRN PRN (Reason: Pain Score 4-10) 5 Days Qty: 20 0RF Continued atorvastatin 80 mg tablet 80 mg PO QHS amlodipine 5 mg tablet 5 mg PO QDAY ezetimibe 10 mg tablet 10 mg PO QDAY ferrous sulfate 325 mg (65 mg iron) tablet 325 mg PO QDAY lidocaine 5 % cream 1 applic topical TID PRN (Reason: pain) methocarbamol 750 mg tablet 750 mg PO TID PRN (Reason: muscle spasm) ondansetron 8 mg tablet,disintegrating 8 mg PO Q8H PRN (Reason: nausea and vomiting) pregabalin 300 mg capsule 300 mg PO BID Xarelto 20 mg tablet 20 mg PO QPM Rx Instructions: must administer with evening meal venlafaxine 75 mg tablet 300 mg PO BID Held acetaminophen 325 mg capsule 650 mg PO Q8H PRN PRN (Reason: fever or pain) Hold Instructions: Resume on 08/13/24. Referrals / Follow Up: ADRIAN BARTON [Other] Disposition Disposition (needs filled in before D/C Order can be placed): Home, Self Care
[2024-08-06] MEDS: Pregabalin 75 MG Capsule 300 MG PO (08:31)
[2024-08-06] MEDS: Ferrous Sulfate 325 MG Tablet PO (08:31)
[2024-08-06] MEDS: Rivaroxaban 20 MG Tablet PO (08:31)
[2024-08-06] MEDS: amLODIPine 5 MG Tablet PO (08:31)
[2024-08-06] MEDS: Venlafaxine XR 75 MG Capsule PO (08:31)
[2024-08-06] MEDS: Ezetimibe 10 MG Tablet PO (08:32)
--- NOTE | 2024-08-06 08:51 | CASEMGMT ---
Pt has an order for DC placed. RN CM to pt room at this time. Pt A&Ox4 resting comfortably in bed and is calm. Pt states that he has a ride home today around 11. Pt states that he still feels safe returning home today and denies the need for HH or OP Tx. Pt states that he received education on how to care for his Prevena vac. Pt made aware of his f/u appt and that it will also be on his DC paperwork. Pt states understanding and denies further questions or concerns. Pt RN updated.
== END 2024-08-06 11:18 | disposition home or self-care (01) | DRG 253 ==
PROVIDERS: Physician Assistant; Admitting Provider Surgery Trauma Surgery; Referring Provider Surgery Trauma Surgery; Visit Provider Surgery Trauma Surgery
PROC: 041 Lower Arteries, Bypass (ICD-10-PCS; principal; 2024-08-04 07:00)
DX: I70.611 Atherosclerosis of nonbiological bypass graft(s) of the extremities with intermittent claudication, right leg (principal); I74.5 Embolism and thrombosis of iliac artery; G90.522 Complex regional pain syndrome I of left lower limb; T82.856A Stenosis of peripheral vascular stent, initial encounter; I70.92 Chronic total occlusion of artery of the extremities; J44.9 Chronic obstructive pulmonary disease, unspecified; I10 Essential (primary) hypertension; E78.5 Hyperlipidemia, unspecified; M19.90 Unspecified osteoarthritis, unspecified site; G62.9 Polyneuropathy, unspecified; E87.8 Other disorders of electrolyte and fluid balance, not elsewhere classified; Z87.891 Personal history of nicotine dependence; Z79.899 Other long term (current) drug therapy; Z79.02 Long term (current) use of antithrombotics/antiplatelets; Z79.01 Long term (current) use of anticoagulants; Z86.718 Personal history of other venous thrombosis and embolism; Z98.890 Other specified postprocedural states; Y82.8 Other medical devices associated with adverse incidents
CPT/HCPCS: 36415; 80048; 85018; 85025; 85027; 85347; 85730; 86850; 86900; 86901; 86920; 94668; 94762; 97162; 97802; 99252; A4648; A4216; G0463; J2405

== ENCOUNTER → 2024-09-03 | Outpatient (CLI) | payer MEDICARE, SELFPAY ==
--- NOTE | 2024-09-03 13:05 | ART_ITS ---
Reason For Study Reason For Study: S/P left to right fem-fem bypass Procedure A bilateral lower extremity continuous wave Doppler with analog waveform analysis and ankle brachial indexes. Left Segmental Pressures Left brachial= 128mmHg. Left posterior tibial artery = 114mmHg. Left dorsalis pedis artery = 128mmHg. Left digit = 73 mmHg. The left dorsalis pedis waveforms are triphasic. The left posterior tibial artery waveforms are triphasic. Right Segmental Pressures Right brachial= 126mmHg. Right posterior tibial artery = 102mmHg. Right dorsalis pedis artery = 115mmHg. Right digit = 77 mmHg. The right dorsalis pedis waveforms are biphasic. The right posterior tibial artery waveforms are biphasic. Indices The right ankle brachial index by the dorsalis pedis is 0.90. The right ankle brachial index by the posterior tibial artery is 0.80. The right digital-brachial index is 0.60. The left ankle brachial index by the dorsalis pedis is 1.00. The left ankle brachial index by the posterior tibial artery is 0.89. The left digital-brachial index is 0.57. VL/Ankle Brachial Index Interpretation Summary Right ADILENE 0.9, mild arterial insufficiency. Doppler/PVR waveforms of the right ankle mildly diminished at rest. Left ADILENE 1.0, normal. Doppler/PVR waveforms of the left ankle normal at rest. T BI diminished, pedal/digit disease vs spasm. Ordering Physician: Sophia Lockett Performed By: Lauren Briscoe RVT
--- NOTE | 2024-09-03 13:05 | ADU_ITS ---
Reason For Study Reason For Study: S/P left to right fem-fem bypass Right Velocities Left Velocities Left to Right Fem-Fem Bypass Ext Iliac Artery, dist = 157.8 cm./sec. Left EIA distal, Prox to bypass, 157.8 cm/sec. Common Femoral Artery, mid = 189.4 cm./sec. Prox anastamosis, 129.3 cm/sec. Supf. Femoral Artery, prox = 166 cm./sec. Prox graft, 121.6 cm/sec. Supf. Femoral Artery, mid = 99.7 cm./sec. Mid graft, 106 cm/sec. Supf. Femoral Artery, dist = 79.3 cm./sec. Distal graft, 116.1 cm/sec. Profunda Femoral Artery = 81.5 cm./sec. Distal anastamosis, 103 cm/sec. Popliteal Artery, mid = 76.9 cm./sec. Right SFA origin, Distal to bypass, 83.8 cm/sec. Post. Tibial Artery, prox = 62.1 cm./sec. Right Profunda artery, Distal to Bypass, 60.1 cm/sec. Post Tibial Artery, mid = 67 cm./sec. Supf Femoral Artery, prox = 114.9 cm./sec. Post Tibial Artery, dist. = 44.9 cm./sec. Supf Femoral Artery, mid = 121.6 cm./sec. Peroneal Artery, prox = 42.1 cm./sec. Supf Femoral Artery, dist. = 72.3 cm./sec. Peroneal Artery, mid = 45 cm./sec. Popliteal Artery, mid = 62.1 cm./sec. Peroneal Artery,dist. = 23.1 cm./sec. Post. Tibial Artery, prox = 61.1 cm./sec. Ant.Tibial Artery, prox = 46 cm./sec. Post. Tibial Artery, mid = 69.9 cm./sec. Ant Tibial Artery, mid = 44.6 cm./sec. Post. Tibial Artery, dist = 67.7 cm./sec. Ant. Tibial Artery, distal = 48.8 cm./sec. Peroneal Artery, prox = 36.9 cm./sec. Peroneal Artery, mid = 23.9 cm./sec. Ant. Tibial Artery, prox = 59.5 cm./sec. Ant. Tibial Artery, mid = 64.8 cm./sec. Ant. Tibial Artery, dist = 58.2 cm./sec. Procedure Exam performed in department. VL/US Art Duplex Bilat Lower Ext Interpretation Summary Patent femoral-femoral bypass with normal velocities and no evidence of stenosi s. Bilateral lower extremity arteries with no stenosis or occlusion identified. Ordering Physician: Sophia Lockett Performed By: Lauren Briscoe RVT
== END | disposition home or self-care (01) ==
LOC: CVS 13:05
PROVIDERS: Referring Provider Physician Assistant; Visit Provider Physician Assistant
DX: I73.9 Peripheral vascular disease, unspecified (principal)
CPT/HCPCS: 93922; 93925

== ENCOUNTER → 2024-12-18 | Outpatient (CLI) | payer MEDICARE, SELFPAY ==
--- NOTE | 2024-12-18 13:19 | ART_ITS ---
Reason For Study Reason For Study: S/P left to right fem-fem bypass Procedure A bilateral lower extremity continuous wave Doppler with analog waveform analysis and ankle brachial indexes. Left Segmental Pressures Left brachial= 126mmHg. Left posterior tibial artery = 114mmHg. Left dorsalis pedis artery = 111mmHg. Left digit = 77 mmHg. The left dorsalis pedis waveforms are biphasic. The left posterior tibial artery waveforms are biphasic. Right Segmental Pressures Right brachial= 126mmHg. Right posterior tibial artery = 114mmHg. Right dorsalis pedis artery = 107mmHg. Right digit = 115 mmHg. The right dorsalis pedis waveforms are biphasic. The right posterior tibial artery waveforms are biphasic. Indices The right ankle brachial index by the dorsalis pedis is 0.85. The right ankle brachial index by the posterior tibial artery is 0.90. The right digital-brachial index is 0.91. The left ankle brachial index by the dorsalis pedis is 0.88. The left ankle brachial index by the posterior tibial artery is 0.90. The left digital-brachial index is 0.61. VL/Ankle Brachial Index Interpretation Summary Right ADILENE 0.9, mild arterial insufficiency. Doppler/PVR waveforms of the right ankle mildly diminished at rest. Left ADILENE 0.9, mild arterial insufficiency. Doppler/PVR waveforms of the left an kle mildly diminished at rest. Ordering Physician: Sophia Lockett Performed By: Lauren Briscoe RVT
--- NOTE | 2024-12-18 13:19 | ADU_ITS ---
Reason For Study Reason For Study: S/P left to right fem-fem bypass Right Velocities Left Velocities Left to Right Fem-Fem Bypass Ext Iliac Artery, dist = 155.3 cm./sec. Left EIA distal, Prox to bypass, 155.3 cm/sec. Common Femoral Artery, mid = 150.1 cm./sec. Prox anastamosis, 140.2 cm/sec. Supf. Femoral Artery, prox = 160.4 cm./sec. Prox graft, 100.8 cm/sec. Supf. Femoral Artery, mid = 82 cm./sec. Mid graft, 89.3 cm/sec. Supf. Femoral Artery, dist = 57 cm./sec. Distal graft, 109.4 cm/sec. Profunda Femoral Artery = 63.4 cm./sec. Distal anastamosis, 216.3 cm/sec. Popliteal Artery, mid = 48.3 cm./sec. Right SFA origin, Distal to bypass, 213 cm/sec. Post. Tibial Artery, prox = 39.5 cm./sec. Right Profunda artery, Distal to Bypass, 56.4 cm/sec. Post Tibial Artery, mid = 58.1 cm./sec. Supf Femoral Artery, prox = 94.2 cm./sec. Post Tibial Artery, dist. = 38.4 cm./sec. Supf Femoral Artery, mid = 93 cm./sec. Peroneal Artery, prox = 36.2 cm./sec. Supf Femoral Artery, dist. = 55.9 cm./sec. Peroneal Artery, mid = 31.8 cm./sec. Popliteal Artery, mid = 55.9 cm./sec. Peroneal Artery,dist. = 32.9 cm./sec. Post. Tibial Artery, prox = 33.9 cm./sec. Ant.Tibial Artery, prox = 48.3 cm./sec. Post. Tibial Artery, mid = 37.7 cm./sec. Ant Tibial Artery, mid = 39.5 cm./sec. Post. Tibial Artery, dist = 33 cm./sec. Ant. Tibial Artery, distal = 39.5 cm./sec. Peroneal Artery, prox = 28.2 cm./sec. Peroneal Artery, mid = 36.7 cm./sec. Peroneal Artery,dist = 22.6 cm./sec. Ant. Tibial Artery, prox = 36.7 cm./sec. Ant. Tibial Artery, mid = 42.4 cm./sec. Ant. Tibial Artery, dist = 31.1 cm./sec. Procedure Exam performed in department. /US Art Duplex Bilat Lower Ext Interpretation Summary Patent left to right femoral-femoral bypass with elevated velocities at distal anastomosis, 21-49% stenosis. Ordering Physician: Sophia Lockett Performed By: Lauren Briscoe RVT
== END | disposition home or self-care (01) ==
LOC: CVS 13:16
PROVIDERS: Referring Provider Physician Assistant; Visit Provider Physician Assistant
DX: I73.9 Peripheral vascular disease, unspecified (principal); Z48.812 Encounter for surgical aftercare following surgery on the circulatory system
CPT/HCPCS: 93922; 93925